=== PATIENT | female | born 1990 | race Caucasian/White ===

== ENCOUNTER 2019-02-08 10:23 | Inpatient (IN) | payer SELFPAY, OTHER ==
[2019-02-08] MEDS: morphine 4 MG/ML VIAL IV (11:28)
[2019-02-08] MEDS: FAMOTIDINE 20 MG INJ IV (11:28)
[2019-02-08] MEDS: ONDANSETRON 4 MG INJ IV ×2 (11:28→22:34)
[2019-02-08] MEDS: SOD CHLORIDE 0.9% 1,000 ML IV ×3 (11:33→22:34)
[2019-02-08 11:41] LABS: ADD MAN DIFF? NO
[2019-02-08 11:43] LABS: WHITE BLOOD COUNT 11.7 10^3/ul (4.8-10.8)
[2019-02-08 11:43] LABS: BASOPHILS % 0.3 % (0.0-2.0); EOSINOPHILS # 0.2 10^3/ul (0.0-0.5); EOSINOPHILS % 1.3 % (0.0-7.0); HEMATOCRIT 38.4 % (37.0-47.0); HEMOGLOBIN 12.5 g/dl (12.0-16.0); LYMPHOCYTES % 16.9 % (15.0-51.0); MEAN CORPUSCULAR HGB CONC 32.6 g/dl (32.0-37.0); MEAN CORPUSCULAR VOLUME 89.1 fl (82.0-101.0); MEAN PLATELET VOLUME 11.3 fl (7.4-10.4); MONOCYTE # 0.7 10^3/ul (0.3-0.9); MONOCYTES % 5.5 % (0.0-11.0); NEUTROPHIL # 8.9 10^3/ul (1.6-7.5); NEUTROPHILS % 75.6 % (39.0-77.0); PLATELET COUNT 308 10^3/UL (140-415); RED BLOOD COUNT 4.31 10^6/ul (4.20-5.40); RED CELL DISTRIBUTION WIDTH 13.5 % (11.5-14.5)
[2019-02-08 11:52] LABS: ADD UMIC YES; UR ASCORBIC ACID NEGATIVE (NEGATIVE); UR BILIRUBIN (Dip) NEGATIVE (NEGATIVE); UR BLOOD (Dip) 2+ mg/dL (NEGATIVE); UR CLARITY SLIGHTLY CLOUDY (CLEAR); UR COLOR YELLOW (YELLOW); UR GLUCOSE (Dip) NEGATIVE (NEGATIVE); UR KETONES (Dip) NEGATIVE (NEGATIVE); UR LEUKOCYTE ESTERASE (Dip) NEGATIVE Leu/ul (NEGATIVE); UR NITRITE (Dip) NEGATIVE (NEGATIVE); UR RBC 5 /HPF (0-5); UR SPECIFIC GRAVITY (Dip) 1.014 (1.003-1.030); UR SQUAMOUS EPITHELIAL CELL FEW /HPF (FEW); UR TOTAL PROTEIN (Dip) NEGATIVE (NEGATIVE); UR UROBILINOGEN (Dip) NEGATIVE (NEGATIVE); UR WBC 2 /HPF (0-5)
[2019-02-08] MEDS: morphine 2 MG INJ IV ×2 (12:42→22:34)
[2019-02-08] MEDS: KETOROLAC 30 MG INJ IV (12:42)
[2019-02-08 13:29] LABS: ALANINE AMINOTRANSFERASE 30 IU/L (13-69); ALBUMIN 4.3 g/dl (3.3-4.9); ALBUMIN/GLOBULIN RATIO 1.38; ALKALINE PHOSPHATASE 62 IU/L (42-121); ANION GAP 6 (5-13); ASPARTATE AMINO TRANSFERASE 26 IU/L (15-46); BILIRUBIN,INDIRECT 0.5 mg/dl (0-1.1); BILIRUBIN,TOTAL 0.5 mg/dl (0.2-1.3); BLOOD UREA NITROGEN 10 mg/dl (7-20); CALCIUM 9.2 mg/dl (8.4-10.2); CARBON DIOXIDE 27 mmol/L (21-31); CHLORIDE 106 mmol/L (97-110); CREATININE 0.55 mg/dl (0.44-1.00); Estimated GFR > 60 mL/min (>60); GLUCOSE 98 mg/dl (70-220); LIPASE 91 U/L (23-300); POTASSIUM 4.2 mmol/L (3.5-5.1); SODIUM 139 mmol/L (135-144); TOTAL PROTEIN 7.4 g/dl (6.1-8.1)
[2019-02-08] MEDS: PIPER-TAZO 3.375 GM IV (PMX) 100 ML IVPB ×2 (13:56→17:30)
[2019-02-08] MEDS ORDERED: NACL 0.9% 3 ML SYG IV (14:00)
[2019-02-08] MEDS ORDERED: ACETAMINOPHEN 325 MG TAB PO (14:00)
[2019-02-08] MEDS ORDERED: ONDANSETRON 4 MG INJ IV (14:00)
[2019-02-08] MEDS ORDERED: PIPER-TAZO 3.375 GM IV (PMX) 100 ML IVPB (14:00)
[2019-02-08 14:48] LABS: INR 0.99; PROTIME 13.2 Sec (11.9-14.9)
[2019-02-08] MEDS ORDERED: ALBUTEROL/IPRATROPIUM (NEB) 3 ML AMP HHN (15:00)
[2019-02-08 15:49] LABS: TROPONIN-I < 0.012 ng/ml (0.000-0.120)
[2019-02-08] MEDS: PANTOPRAZOLE 40 MG INJ IV (17:30)
[2019-02-09] MEDS: PIPER-TAZO 3.375 GM IV (PMX) 100 ML IVPB ×4 (00:12→18:37)
[2019-02-09] MEDS: SOD CHLORIDE 0.9% 1,000 ML IV ×7 (03:07→23:16)
[2019-02-09 05:07] LABS: ADD MAN DIFF? NO
[2019-02-09 05:22] LABS: BASOPHILS % 0.3 % (0.0-2.0); EOSINOPHILS # 0.3 10^3/ul (0.0-0.5); EOSINOPHILS % 3.1 % (0.0-7.0); HEMATOCRIT 33.2 % (37.0-47.0); HEMOGLOBIN 10.7 g/dl (12.0-16.0); LYMPHOCYTES # 1.8 10^3/ul (0.8-2.9); LYMPHOCYTES % 17.6 % (15.0-51.0); MEAN CORPUSCULAR HGB CONC 32.2 g/dl (32.0-37.0); MONOCYTE # 0.8 10^3/ul (0.3-0.9); MONOCYTES % 8.4 % (0.0-11.0); NEUTROPHILS % 70.3 % (39.0-77.0); PLATELET COUNT 246 10^3/UL (140-415); RED BLOOD COUNT 3.69 10^6/ul (4.20-5.40); RED CELL DISTRIBUTION WIDTH 14.1 % (11.5-14.5)
[2019-02-09 05:31] LABS: ALANINE AMINOTRANSFERASE 33 IU/L (13-69); ALBUMIN 3.6 g/dl (3.3-4.9); ALBUMIN/GLOBULIN RATIO 1.33; ALKALINE PHOSPHATASE 56 IU/L (42-121); ANION GAP 3 (5-13); ASPARTATE AMINO TRANSFERASE 24 IU/L (15-46); BILIRUBIN,INDIRECT 0.7 mg/dl (0-1.1); BILIRUBIN,TOTAL 0.7 mg/dl (0.2-1.3); BLOOD UREA NITROGEN 12 mg/dl (7-20); CALCIUM 8.4 mg/dl (8.4-10.2); CARBON DIOXIDE 29 mmol/L (21-31); CHLORIDE 109 mmol/L (97-110); CHOLESTEROL 110 mg/dl (100-200); CREATININE 0.82 mg/dl (0.44-1.00); Estimated GFR > 60 mL/min (>60); GLUCOSE 109 mg/dl (70-220); HDL CHOLESTEROL 36 mg/dl (34-82); LDL CHOLESTEROL,CALCULATED 54 mg/dl; MAGNESIUM 2.3 mg/dl (1.7-2.5); POTASSIUM 4.4 mmol/L (3.5-5.1); SODIUM 141 mmol/L (135-144); TOTAL PROTEIN 6.3 g/dl (6.1-8.1); TRIGLYCERIDES 101 mg/dl (0-149)
[2019-02-09] MEDS: PANTOPRAZOLE 40 MG INJ IV (05:50)
[2019-02-09] MEDS ORDERED: PANTOPRAZOLE 40 MG INJ IV (06:00)
[2019-02-09] MEDS: morphine 2 MG INJ IV ×5 (06:06→22:39)
[2019-02-09] MEDS ORDERED: NEOSTIGMINE 3 MG/3 ML SYRINGE (07:00)
[2019-02-09] MEDS ORDERED: DESFLURANE 15 MIN (07:00)
[2019-02-09] MEDS ORDERED: GLYCOPYRROLATE 0.4 MG INJ (07:00)
[2019-02-09 07:19] LABS: HEMOGLOBIN A1C 5.6 % (0-5.9)
[2019-02-09] MEDS: ONDANSETRON 4 MG INJ IV ×3 (10:59→22:39)
[2019-02-09] MEDS: HYDROCODONE/APAP (5/325) TAB PO (16:46)
[2019-02-09] MEDS: FAMOTIDINE 20 MG INJ IV (21:11)
[2019-02-10] MEDS: PIPER-TAZO 3.375 GM IV (PMX) 100 ML IVPB ×5 (00:18→23:58)
[2019-02-10] MEDS: HYDROCODONE/APAP (5/325) TAB PO (01:48)
[2019-02-10] MEDS: ACETAMINOPHEN 1000MG/100ML IV 100 ML IVPB (02:59)
[2019-02-10] MEDS: morphine 2 MG INJ IV ×3 (05:01→20:39)
[2019-02-10] MEDS: SOD CHLORIDE 0.9% 1,000 ML IV ×4 (05:01→20:38)
[2019-02-10] MEDS ORDERED: GLYCOPYRROLATE 0.4 MG INJ (07:00)
[2019-02-10] MEDS ORDERED: NEOSTIGMINE 3 MG/3 ML SYRINGE (07:00)
[2019-02-10 07:45] LABS: ADD MAN DIFF? NO
[2019-02-10 07:59] LABS: BASOPHILS % 0.3 % (0.0-2.0); EOSINOPHILS # 0.3 10^3/ul (0.0-0.5); EOSINOPHILS % 2.3 % (0.0-7.0); HEMATOCRIT 35.9 % (37.0-47.0); HEMOGLOBIN 11.1 g/dl (12.0-16.0); LYMPHOCYTES # 1.9 10^3/ul (0.8-2.9); LYMPHOCYTES % 15.9 % (15.0-51.0); MEAN CORPUSCULAR HEMOGLOBIN 28.2 pg (29.0-33.0); MEAN CORPUSCULAR HGB CONC 30.9 g/dl (32.0-37.0); MEAN CORPUSCULAR VOLUME 91.1 fl (82.0-101.0); MEAN PLATELET VOLUME 10.8 fl (7.4-10.4); MONOCYTE # 1.2 10^3/ul (0.3-0.9); MONOCYTES % 10.2 % (0.0-11.0); NEUTROPHIL # 8.7 10^3/ul (1.6-7.5); NEUTROPHILS % 70.9 % (39.0-77.0); PLATELET COUNT 245 10^3/UL (140-415); RED BLOOD COUNT 3.94 10^6/ul (4.20-5.40); RED CELL DISTRIBUTION WIDTH 13.9 % (11.5-14.5)
[2019-02-10 07:59] LABS: WHITE BLOOD COUNT 12.2 10^3/ul (4.8-10.8)
[2019-02-10 08:14] LABS: ANION GAP 6 (5-13); BLOOD UREA NITROGEN 6 mg/dl (7-20); CALCIUM 8.6 mg/dl (8.4-10.2); CARBON DIOXIDE 24 mmol/L (21-31); CHLORIDE 109 mmol/L (97-110); CREATININE 0.64 mg/dl (0.44-1.00); Estimated GFR > 60 mL/min (>60); GLUCOSE 100 mg/dl (70-220); MAGNESIUM 2.1 mg/dl (1.7-2.5); PHOSPHORUS 3.7 mg/dl (2.5-4.9); POTASSIUM 4.4 mmol/L (3.5-5.1); SODIUM 139 mmol/L (135-144)
[2019-02-10] MEDS ORDERED: MIDAZOLAM 1 MG/ML 2 ML INJ (09:04)
[2019-02-10] MEDS ORDERED: ROCURONIUM 50 MG INJ (09:04)
[2019-02-10] MEDS ORDERED: CEFAZOLIN 1 GM INJ (09:04)
[2019-02-10] MEDS ORDERED: PROPOFOL 20 ML (09:04)
[2019-02-10] MEDS ORDERED: SUCCINYLCHOLINE CHLORIDE 100 MG/5 ML SYG IV (09:04)
[2019-02-10] MEDS ORDERED: ONDANSETRON 4 MG INJ (09:05)
[2019-02-10] MEDS ORDERED: KETOROLAC 30 MG INJ (09:05)
[2019-02-10] MEDS ORDERED: ONDANSETRON 4 MG INJ IV ×2 (09:30→11:00)
[2019-02-10] MEDS ORDERED: OXYCODONE/ACETAMINOPHEN (5/325) TAB PO ×2 (09:30→11:00)
[2019-02-10] MEDS: BUPIVACAINE 0.25%/EPI (SDV) 30 ML INJ (10:22)
[2019-02-10] MEDS ORDERED: morphine 2 MG INJ IV (11:00)
[2019-02-10] MEDS: HYDROmorphONE 1 MG/5 ML IV SYRINGE IV ×2 (11:20→11:53)
[2019-02-10] MEDS: FAMOTIDINE 20 MG INJ IV ×3 (12:43→20:41)
[2019-02-10] MEDS: ACETAMINOPHEN 325 MG TAB PO (21:30)
[2019-02-11] MEDS: SOD CHLORIDE 0.9% 1,000 ML IV ×3 (01:56→08:36)
[2019-02-11] MEDS: OXYCODONE/ACETAMINOPHEN (5/325) TAB PO (02:23)
[2019-02-11] MEDS: PIPER-TAZO 3.375 GM IV (PMX) 100 ML IVPB (05:39)
[2019-02-11 06:18] LABS: ADD MAN DIFF? NO
[2019-02-11 06:24] LABS: WHITE BLOOD COUNT 10.9 10^3/ul (4.8-10.8)
[2019-02-11 06:24] LABS: BASOPHILS % 0.4 % (0.0-2.0); EOSINOPHILS # 0.1 10^3/ul (0.0-0.5); EOSINOPHILS % 0.7 % (0.0-7.0); HEMATOCRIT 31.8 % (37.0-47.0); HEMOGLOBIN 10.1 g/dl (12.0-16.0); LYMPHOCYTES # 1.5 10^3/ul (0.8-2.9); MEAN CORPUSCULAR HEMOGLOBIN 28.8 pg (29.0-33.0); MEAN CORPUSCULAR HGB CONC 31.8 g/dl (32.0-37.0); MEAN CORPUSCULAR VOLUME 90.6 fl (82.0-101.0); MONOCYTE # 0.8 10^3/ul (0.3-0.9); MONOCYTES % 7.4 % (0.0-11.0); NEUTROPHIL # 8.4 10^3/ul (1.6-7.5); NEUTROPHILS % 77.1 % (39.0-77.0); PLATELET COUNT 237 10^3/UL (140-415); RED BLOOD COUNT 3.51 10^6/ul (4.20-5.40); RED CELL DISTRIBUTION WIDTH 14.2 % (11.5-14.5)
[2019-02-11 07:05] LABS: PHOSPHORUS 2.9 mg/dl (2.5-4.9)
[2019-02-11 07:15] LABS: ALANINE AMINOTRANSFERASE 64 IU/L (13-69); ALBUMIN 3.2 g/dl (3.3-4.9); ALBUMIN/GLOBULIN RATIO 1.03; ALKALINE PHOSPHATASE 74 IU/L (42-121); ANION GAP 7 (5-13); ASPARTATE AMINO TRANSFERASE 64 IU/L (15-46); BILIRUBIN,INDIRECT 0.5 mg/dl (0-1.1); BILIRUBIN,TOTAL 0.5 mg/dl (0.2-1.3); BLOOD UREA NITROGEN 7 mg/dl (7-20); CALCIUM 8.3 mg/dl (8.4-10.2); CARBON DIOXIDE 22 mmol/L (21-31); CHLORIDE 110 mmol/L (97-110); CREATININE 0.62 mg/dl (0.44-1.00); Estimated GFR > 60 mL/min (>60); GLUCOSE 101 mg/dl (70-220); POTASSIUM 3.8 mmol/L (3.5-5.1); SODIUM 139 mmol/L (135-144); TOTAL PROTEIN 6.3 g/dl (6.1-8.1)
[2019-02-11] MEDS: FAMOTIDINE 20 MG INJ IV (09:06)
== END 2019-02-11 14:13 | disposition home or self-care (01) | DRG 418 ==
LOC: FTE 10:23 → 2NE 13:52
PROVIDERS: Internal Medicine
PROC: 0FT44ZZ Resection of Gallbladder, Percutaneous Endoscopic Approach (ICD-10-PCS; principal; 2019-02-10 09:00)
DX: K80.00 Calculus of gallbladder with acute cholecystitis without obstruction (principal); K21.9 Gastro-esophageal reflux disease without esophagitis; E66.01 Morbid (severe) obesity due to excess calories; Z68.43 Body mass index [BMI] 50.0-59.9, adult
CPT/HCPCS: 36415; 76705; 78226; 80048; 80053; 80061; 81001; 81025; 83036; 83690; 83735; 84100; 84443; 84484; 85025; 85610; 86850; 86900; 86901; 87040-91; 87086; 88304; 93005; 96361; 96374; 96375; 96376; 99285-25